=== PATIENT | male | born 2000 | race Caucasian/White ===

== ENCOUNTER 2018-02-08 16:43 | Inpatient (IN) | payer BC, OTHER ==
[~2018-02-08] VITALS: Ht 172.7 cm; Wt 60.8 kg
--- NOTE | ~2018-02-08 | EEG ---
[facility] [employer] [place] [address] ELECTROENCEPHALOGRAM Name: MAURO FRANCE Darlene Room #: 355-P [facility] IN M.R.#: [id number] Admission: 02/08/18 Attend Phys: Ney Morgan MD Discharge: 02/09/18 Date of : 98 Report #: [id number] THIS REPORT FOR: //name// CC: NO SHAYE Morgan DATE OF SERVICE: 02/09/2018 This patient is being evaluated for the possibility of seizure. EEG was done by placing the electrodes by standard 10-20 system of electrode placement. Both referential and sequential montages were used for recording. Background activity in this patient's EEG is about 11 Hz and 50 microvolts. This is a very well formed background activity. This patient became drowsy that is associated with bilateral slowing on both sides. Most of the EEG was obtained when the patient was awake. Photic stimulation is unremarkable. Throughout the record, no active epileptiform activity was noticed. IMPRESSION: This patient's EEG is within normal limits. No active epileptiform activity was noticed during this record. It might be mentioned that EEG can be normal in a patient with a seizure disorder. <ELECTRONICALLY SIGNED> By: John Hong MD 02/12/18 2022 [id number] John Hong MD /nt
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
--- NOTE | ~2018-02-08 | EKG ---
[address] [address] ELECTROCARDIOGRAM REPORT Name: MAURO FRANCE Room #: 355-P ADM IN M.R.#: [id number] Admission: 02/08/18 Attend Phys: Ney Morgan MD Discharge: Date of : 98 Report #: [id number] THIS REPORT FOR: //name// [facility] ED Test Date: 2018-02-08 Test Time: 16:52:10 Pat Name: MAURO FRANCE Department: Room: Gender: M Video Tape Duplicator: [facility] : 2000 Requested By: Sivakumar Ramos Order Number: [id number] MD: Elvis Castellon Measurements Intervals Ord Rate: 121 P: 67 CA: 127 QRS: 86 QRSD: 78 T: 1 QT: 303 QTc: 430 Interpretive Statements Sinus tachycardia Minimal ST depression, inferior leads No previous ECG available for comparison Electronically Signed On 02-08-2018 21:58:13 CDT by Elvis Castellon [email or web address] <ELECTRONICALLY SIGNED> By: Elvis Castellon MD 02/08/18 2158 1652 1652 MD AURORA Dobson
[2018-02-08 16:45] VITALS: BP 106/34
[2018-02-08 17:02] LABS: HEMATOCRIT 45.9 % (42.0-52.0); HEMOGLOBIN 15.2 gm/dL (14.0-18.0); MCH 31.1 pg (26.0-34.0); MCHC 33.2 g/dL (28.0-37.0); MCV 93.6 fL (80.0-100.0); RBC 4.9 mil/uL (4.50-6.00); RDW 12.8 % (10.5-14.5)
[2018-02-08 17:09] LABS: ANION GAP 29 mmol/L (7-16); BUN 10 mg/dL (7-18); CALCIUM 9.4 mg/dL (8.5-10.1); CHLORIDE 103 mmol/L (98-107); CREATININE 1.8 mg/dL (0.7-1.3); GLUCOSE 122 mg/dL (74-106); POTASSIUM 4.3 mmol/L (3.5-5.1); SALICYLATE < 2.8 mg/dL (2.8-20.0); SODIUM 143 mmol/L (136-145)
[2018-02-08 17:12] LABS: CO2 11 mmol/L (21-32)
[2018-02-08 17:50] LABS: URINE BILIRUBIN NEGATIVE (Negative); URINE BLOOD 1+ (Negative); URINE CLARITY CLEAR; URINE COLOR YELLOW; URINE GLUCOSE-RANDOM* NEGATIVE (Negative); URINE KETONES NEGATIVE (Negative); URINE LEUKOCYTES-REFLEX NEGATIVE (Negative); URINE NITRITE-REFLEX NEGATIVE (Negative); URINE PROTEIN (DIPSTICK) 1+ (Negative); URINE SPECIFIC GRAVITY >= 1.030 (1.005-1.035); URINE UROBILINOGEN 0.2 E.U./dl (0.2-1.0)
[2018-02-08] MEDS ORDERED: WELLBUTRIN XL150 MG PO (17:55)
[2018-02-08] MEDS ORDERED: LAMICTAL100 MG PO (17:55)
[2018-02-08] MEDS ORDERED: ADZENYS XR-OD12.5 MG PO (17:56)
[2018-02-08] MEDS ORDERED: LEXAPRO 10 MG T10 M2 PO (17:56)
[2018-02-08] MEDS ORDERED: OMEPPI 20 MG-11 EACH PO (17:57)
[2018-02-08 17:58] LABS: AMP/METHAMP POSITIVE (Negative); BARBITURATES Negative (Negative); BENZODIAZEPINES Negative (Negative); COCAINE Negative (Negative); METHADONE Negative (Negative); OPIATES Negative (Negative); PCP Negative (Negative)
[2018-02-08] MEDS ORDERED: TRAZODONE HCL50 MG PO (17:58)
[2018-02-08 17:59] LABS: SQUAMOUS None Seen /LPF (0-3)
[2018-02-08 18:00] LABS: BACTERIA-REFLEX 1-9 Few /HPF (None Seen); CASTS None Seen /LPF (None Seen); CRYSTALS None Seen /LPF (None Seen); URINE RBC 0-2 Rare /HPF (0-2); URINE WBC-REFLEX None Seen /HPF (0-5)
[2018-02-08 20:02] VITALS: BP 122/70
[2018-02-08 20:36] VITALS: BP 128/72
[2018-02-08 21:08] VITALS: BP 129/78
[2018-02-08 23:48] VITALS: BP 116/62
[2018-02-09 03:30] VITALS: BP 112/59
[2018-02-09 04:35] LABS: ABSOLUTE NEUTROPHILS 5.3 thou/uL (1.4-8.2); BASOPHILS 0.4 % (0.0-2.0); EOSINOPHILS 1.5 % (0.0-3.0); HEMOGLOBIN 13.5 gm/dL (14.0-18.0); LYMPHOCYTES 26.9 % (24.0-44.0); MCH 30.8 pg (26.0-34.0); MCHC 33.8 g/dL (28.0-37.0); MCV 91.3 fL (80.0-100.0); MONOCYTES 7.6 % (1.0-8.0); PLATELET COUNT 228 thou/uL (150-400); POLYS 63.6 % (36.0-66.0); RBC 4.39 mil/uL (4.50-6.00); RDW 12.7 % (10.5-14.5); WBC 8.3 thou/uL (4.0-11.0)
[2018-02-09 04:42] LABS: CALCIUM 8.1 mg/dL (8.5-10.1); CREATININE 1.1 mg/dL (0.7-1.3); POTASSIUM 3.5 mmol/L (3.5-5.1)
[2018-02-09 04:48] LABS: ALBUMIN 3.9 g/dL (3.4-5.0); MAGNESIUM 2.3 mg/dL (1.8-2.4); TOTAL BILIRUBIN 0.5 mg/dL (<0.1-1.0); TOTAL PROTEIN 6.1 g/dL (6.4-8.2)
[2018-02-09 08:40] VITALS: BP 121/57
[2018-02-09 12:59] VITALS: BP 120/62
[2018-02-09 15:57] VITALS: BP 120/62
[2018-02-09 16:44] LABS: TSH 0.935 uIU/mL (0.358-3.740)
[2018-02-10 18:06] LABS: TRICYCLIC (TCA) CONFIRMATION Negative ng/mL (Cutoff=100)
== END 2018-02-09 16:15 | disposition home or self-care (01) | DRG 101 ==
LOC: ER 16:43 → 3W 18:50 → EROBS 18:50 → 3W 21:03
PROVIDERS: Emergency Medicine; Internal Medicine; Psychiatry & Neurology Neuromuscular Medicine
DX: R56.9 Unspecified convulsions (principal); E87.2 Acidosis; F90.9 Attention-deficit hyperactivity disorder, unspecified type; F32.9 Major depressive disorder, single episode, unspecified; F17.210 Nicotine dependence, cigarettes, uncomplicated; N28.9 Disorder of kidney and ureter, unspecified; V47.5XXA Car driver injured in collision with fixed or stationary object in traffic accident, initial encounter; Y93.89 Activity, other specified; Y92.488 Other paved roadways as the place of occurrence of the external cause; Y99.8 Other external cause status; Z81.8 Family history of other mental and behavioral disorders
CPT/HCPCS: 10879